=== PATIENT | female | born 1970 | race Caucasian/White ===

== ENCOUNTER 2023-08-26 18:16 | Outpatient (CLI) | payer BC, SELFPAY | END 2023-08-26 18:17 | disposition home or self-care (01) | LOC: AMB 08-28 10:42 | PROVIDERS: Visit Provider Student in an Organized Health Care Education/Training Program | DX: S89.92XA Unspecified injury of left lower leg, initial encounter (principal); V53.5XXA Driver of pick-up truck or van injured in collision with car, pick-up truck or van in traffic accident, initial encounter; Y92.411 Interstate highway as the place of occurrence of the external cause | CPT/HCPCS: A0425; A0433 ==